=== PATIENT | female | born 1955 | race Caucasian/White ===

== ENCOUNTER 2022-04-20 13:37 | Day surgery (SDC) | payer MEDICARE ==
[2022-04-20] MEDS ORDERED: Marcaine Mpf 0.5% Vial 30 Ml IJ ONE (13:38)
[2022-04-20] MEDS ORDERED: LIDOCAINE HCL 1% 50 MG/5 ML VL PF IJ ONE (13:38)
[2022-04-20] MEDS ORDERED: Decadron 4 MG INJ IV ONE (13:38)
[2022-04-20] MEDS ORDERED: Depo-Medrol 40 MG/ML IM ONE (13:38)
[2022-04-20] MEDS ORDERED: DIPRIVAN 200 MG/20 ML IV ONE (15:06)
--- NOTE | 2022-04-20 15:42 | XRAY ---
Indication: Left SI joint, left piriformis muscle, and left greater trochanter bursa injections. Intraoperative fluoroscopy provided for 42 seconds. 4 digital spot images obtained prone demonstrates posterior needle tip projecting over the left SI joint. Additional needle tip projects over the left piriformis muscle and lateral to the left greater trochanter with small amount of contrast injected for both needle tip placement. Correlate with intraoperative findings/report.
[2022-04-20] MEDS ORDERED: Lactated Ringers 1,000 ML IV ONE (15:51)
--- NOTE | 2022-04-20 15:56 | XRAY ---
42 seconds fluoroscopy time in surgery for injections of the left SI joint, left piriformis muscle, and the left greater trochanter.
== END 2022-04-20 15:34 | disposition home or self-care (01) ==
LOC: SDC-PAIN 13:37
PROVIDERS: ATTEND Psychiatry & Neurology Pain Medicine
DX: M46.1 Sacroiliitis, not elsewhere classified (principal); M79.18 Myalgia, other site; M16.12 Unilateral primary osteoarthritis, left hip; Z79.899 Other long term (current) drug therapy
CPT/HCPCS: 20552; 20610; 27096; 73501; 77002; G0260; J1030; J1100; J2001; J2704; Q9966

== ENCOUNTER 2022-06-15 15:56 | Day surgery (SDC) | payer MEDICARE ==
[2022-06-15] MEDS ORDERED: Depo-Medrol 40 MG/ML IM ONE (15:57)
[2022-06-15] MEDS ORDERED: XYLOCAINE-MPF 1% 5ML SDV IJ ONE (15:57)
[2022-06-15] MEDS ORDERED: Marcaine Mpf 0.5% Vial 30 Ml IJ ONE (15:57)
--- NOTE | 2022-06-15 19:41 | XRAY ---
Indication: Right SI joint injection. Intraoperative fluoroscopy provided for 12 seconds. 2 digital spot image submitted for interpretation demonstrates posterior needle tip projecting over the right SI joint. Correlate with intraoperative findings/report.
--- NOTE | 2022-06-16 09:20 | XRAY ---
12 seconds fluoroscopy time in surgery for injection of the right SI joint.
== END 2022-06-15 18:20 | disposition home or self-care (01) ==
LOC: SDC-PAIN 15:56
PROVIDERS: ATTEND Psychiatry & Neurology Pain Medicine
DX: M46.1 Sacroiliitis, not elsewhere classified (principal); Z79.899 Other long term (current) drug therapy
CPT/HCPCS: 27096; 72170; 77002; G0260; J1030